=== PATIENT | female | born 1960 | race African-American/Black ===

== ENCOUNTER 2016-08-01 12:01 | Emergency (ER) | payer OTHER ==
--- NOTE | ~2016-08-01 | CR262 ---
[facility] A Service of [facility] RADIOLOGY TEXT RESULTS PATIENT: ZAYDA REYES LOCATION: [facility] : 58 UNIT #: [id number] AGE: [address]: Ehsan Castro DO SEX: F ORDER DR: [id number] [facility] [address] [place], [place] [address] [id number] E MR#: [id number] Acc #: [id number] NAME: ZAYDA REYES : 1960 SEX: F STUDY DATE/TIME: 08/01/2016 12:29 UNIT: [facility] ROOM: STUDY DESCRIPTION: CR Toe 2 Views Great Lt Attending Physician: Ehsan Castro D.O. Ordering Physician: Ehsan Castro D.O. Primary Care Physician: [facility] MEDICAL IMAGING REPORT This report is preliminary unless electronic signature is present EXAM Left first toe, 3 views, 08/01/2016 COMPARISON None. INDICATION 56-year-old female with left first toe pain after falling onto her left side yesterday. FINDINGS Mild osteophyte formation at the first metatarsophalangeal joint. There is a nondisplaced acute fracture of the mid aspect of the first proximal phalanx. No radiopaque foreign body. No dislocation. IMPRESSION Acute nondisplaced fracture of the first proximal phalanx. No evidence of intraarticular extension or dislocation. Dictated by... Addy Lombardi M.D. THIS IS AN ELECTRONICALLY VERIFIED REPORT Addy Lombardi M.D. at 08/03/2016 10:30 AM Janet TD: 08/02/2016 03:17 JOB #: [id number] MEDICAL IMAGING REPORT Page 1 of 1 COPY
--- NOTE | ~2016-08-01 | CR172 ---
[facility] A Service of [facility] RADIOLOGY TEXT RESULTS PATIENT: ZAYDA REYES LOCATION: [facility] : 58 UNIT #: [id number] AGE: [address]: Ehsan Castro DO SEX: F ORDER DR: [id number] [facility] [address] [place], [place] [address] [id number] E MR#: [id number] Acc #: [id number] NAME: ZAYDA REYES : 1960 SEX: F STUDY DATE/TIME: 08/01/2016 12:32 UNIT: [facility] ROOM: STUDY DESCRIPTION: CR Knee 3 Views Lt Attending Physician: Ehsan Castro D.O. Ordering Physician: Ehsan Castro D.O. Primary Care Physician: [facility] MEDICAL IMAGING REPORT This report is preliminary unless electronic signature is present EXAM Left knee, 3 views, 08/01/2016 COMPARISON None. INDICATION 56-year-old female with left knee pain after falling onto her left side yesterday. FINDINGS No significant suprapatellar effusion. Bones are anatomically aligned. No degenerative change. No acute fracture. No radiopaque foreign body or subcutaneous gas. There is prepatellar soft tissue thickening, possibly post traumatic. IMPRESSION 1. Prepatellar soft tissue thickening which may represent post-traumatic edema. Correlation to exclude signs of cellulitis or bursitis recommended. 2. Otherwise normal exam. Dictated by... Addy Lombardi M.D. THIS IS AN ELECTRONICALLY VERIFIED REPORT Addy Lombardi M.D. at 08/03/2016 10:42 AM Janet TD: 08/02/2016 03:23 [facility] A Service [facility] RADIOLOGY TEXT RESULTS PATIENT: ZAYDA REYES LOCATION: [facility] : 58 UNIT #: [id number] AGE: [address]: Ehsan Castro DO SEX: F ORDER DR: JOB #: [id number] MEDICAL IMAGING REPORT Page 1 of 1 COPY
[~2016-08-01 12:01] MED LIST: ACETAMINOPHEN PO; ANUSOL-HC SUPP25 MG PR; COMBIVENT INH14.7 GM INH; KEFLEX PO; KENALOG IN ORABA5 GM TOP; KETOPROFEN PO; LISINOPRIL10 MG PO; MEDROL PO; NO MEDICATIONS; PATIENT'S PHARMACY; PEN-VEE K PO; VICODIN 5/500 T1 TAB PO; ZITHROMAX PO
== END 2016-08-01 14:25 | disposition home or self-care (01) ==
LOC: CED 12:01
DX: S92.415A Nondisplaced fracture of proximal phalanx of left great toe, initial encounter for closed fracture (principal); F17.200 Nicotine dependence, unspecified, uncomplicated; Z23 Encounter for immunization; Z88.5 Allergy status to narcotic agent; W01.0XXA Fall on same level from slipping, tripping and stumbling without subsequent striking against object, initial encounter; Y92.89 Other specified places as the place of occurrence of the external cause
CPT/HCPCS: 29540; 73562; 73660; 90471; 90715; 99283; J1885